=== PATIENT | male | born 1995 | race Two or more races ===

== ENCOUNTER 2024-12-29 14:42 | Emergency (ER) | payer SELFPAY ==
[2024-12-29 15:00] VITALS: BP 131/74; PULSE 80; RESP 19; TEMP 99; BMI 26.6
[2024-12-29 15:54] LABS: ABSOLUTE IMMATURE GRANULOCYTES 0.04 x10^3/uL (0.0-0.031); BASOPHILS # 0.06 x10^3/uL (0.01-0.08); EOSINOPHIL % 9.3 % (0.8-7.0); EOSINOPHILS # 0.66 x10^3/uL (0.04-0.54); HEMATOCRIT 41.5 % (40.1-51.0); HEMOGLOBIN 13.4 g/dL (13.7-17.5); MCHC 32.3 g/dl (32.3-36.5); MEAN CELL VOLUME 87.6 fl (79.0-92.2); MEAN PLT VOLUME 10.6 fl (9.4-12.4); MONOCYTE # 0.79 x10^3/uL (0.30-0.82); MONOCYTE % 11.2 % (5.3-12.2); PLATELET COUNT 293 x10^3/uL (163-337); RDW 13.8 % (11.9-15.3)
[2024-12-29 16:04] LABS: EPI CELLS 3 /uL (0-25.1); HYALINE CASTS 0 /uL (0-3.1); PH,URINE 7.5 (5.0-8.0); URINE APPEARANCE CLOUDY; URINE BACTERIA 2112 /uL (0-1359); URINE BILIRUBIN NEGATIVE (NEGATIVE); URINE COLOR YELLOW; URINE GLUCOSE (UA) NEGATIVE (NEGATIVE); URINE KETONE TRACE (NEGATIVE); URINE LEUK ESTERASE 3+ (NEGATIVE); URINE NITRITE NEGATIVE (NEGATIVE); URINE PROTEIN 2+ (NEGATIVE); URINE RBC 514 /uL (0-23.9); URINE WBC 3213 /uL (0-25.8)
[2024-12-29 16:27] LABS: CHLORIDE 108 mmol/L (98-107); SODIUM 134 mmol/L (136-145)
[2024-12-29 16:30] LABS: ALBUMIN 3.7 g/dl (3.4-5.0); BLOOD UREA NITROGEN 19.8 mg/dL (7-18); CO2 24 mmol/L (21-32); GLUCOSE,RANDOM 106 mg/dL (74-106)
[2024-12-29 16:33] LABS: CREATININE 1.3 mg/dL (0.55-1.3); SGOT/AST 81 U/L (15-37)
[2024-12-29 16:34] LABS: BILIRUBIN,TOTAL 0.5 mg/dL (0.2-1)
[2024-12-29 16:35] LABS: ANION GAP 2 mmol/L (4-13); POTASSIUM 9.3 mmol/L (3.5-5.1); SGPT/ALT 31 U/L (13-61); TOT PROT 7.3 g/dl (6.4-8.2)
[2024-12-29 16:36] LABS: ALK PHOS 66 U/L (45-117)
[2024-12-29 17:24] LABS: HCV DIAGNOSTIC IN-HOUSE W/RFLX NON-REACTIVE (NONREACTIVE)
[2024-12-29] MEDS ORDERED: ACETAMINOPHEN INJECTION 100 ML ONE (17:37)
[2024-12-29] MEDS: ACETAMINOPHEN 1000 MG/100 ML BAG IVPB ONE (17:38)
[2024-12-29] MEDS: CEFTRIAXONE 1,000 MG in DEXTROSE 5%-WATER - 50 ML IVPB ONE (17:38)
[2024-12-29] MEDS ORDERED: CEFTRIAXONE 1 G/50 ML PREMIX 50 ML IVPB ONE (17:38)
[2024-12-29 18:43] LABS: CALCIUM 9.3 mg/dL (8.5-10.1)
[2024-12-29 18:44] LABS: BLOOD UREA NITROGEN 20.7 mg/dL (7-18)
[2024-12-29 18:47] LABS: CREATININE 1.2 mg/dL (0.55-1.3)
[2024-12-29 21:17] LABS: HIV INTERPRETATION NEGATIVE (NEGATIVE)
== END 2024-12-29 18:46 | disposition home or self-care (01) ==
LOC: JER 14:42
PROC: 3E03329 Introduction of Other Anti-infective into Peripheral Vein, Percutaneous Approach (ICD-10-PCS; principal; 2024-12-29)
PROC: 3E033NZ Introduction of Analgesics, Hypnotics, Sedatives into Peripheral Vein, Percutaneous Approach (ICD-10-PCS; 2024-12-29)
DX: N48.1 Balanitis (principal); N39.0 Urinary tract infection, site not specified; R31.9 Hematuria, unspecified; N48.89 Other specified disorders of penis; T83.84XA Pain due to genitourinary prosthetic devices, implants and grafts, initial encounter; R50.9 Fever, unspecified; I49.8 Other specified cardiac arrhythmias; X58.XXXA Exposure to other specified factors, initial encounter
CPT/HCPCS: 36415; 80048; 80053; 81003; 85025; 86140; 86803; 87086; 87186; 87389; 93005; 93010; 99284-25; J0131